=== PATIENT | female | born 1975 | race Caucasian/White ===

== ENCOUNTER 2016-10-31 13:01 | Emergency (ER) | payer OTHER ==
[~2016-10-31] VITALS: Ht 175.3 cm; Wt 63.5 kg
[2016-10-31] MEDS ORDERED: IV SET PRIMARY PUMP SET 1 EA INFUS.SET MC ONE (13:59)
[2016-10-31] MEDS ORDERED: IV NS 0.9% 1,000 ML ONE (13:59)
[2016-10-31] MEDS ORDERED: IV NS 0.9% 1,000 ML BAG IV ONE (14:00)
[2016-10-31] MEDS ORDERED: PANTOPRAZOLE 40 MG VIAL IV ONE (14:00)
[2016-10-31 14:01] LABS: BASOPHILS # (AUTO) 0.1 /CMM (0.0-0.2); BASOPHILS % (AUTO) 0.7 % (0.0-2.0); DIFF TOTAL % 100 %; HEMATOCRIT 33 % (33-45); HEMOGLOBIN 11.4 g/dL (11.5-14.8); LYMPHOCYTES # (AUTO) 0.3 /CMM (0.8-4.8); MEAN CORPUSCULAR HEMOGLOBIN 27 PG (26.0-33.0); MEAN CORPUSCULAR HGB CONC 34 g/dl (31.0-36.0); MEAN CORPUSCULAR VOLUME 78 fL (82-100); MONOCYTES # (AUTO) 0.5 /CMM (0.1-1.30); NEUTROPHILS # (AUTO) 14.7 /CMM (1.8-8.9); NEUTROPHILS % (AUTO) 94.3 % (43.0-81.0); PLATELET COUNT (AUTO) 190 /CMM (150-450); RED BLOOD CELL COUNT(AUTO) 4.23 MIL/uL (4.0-5.2); WHITE BLOOD COUNT (AUTO) 15.6 K/uL (4.3-11.0)
[2016-10-31 14:08] LABS: CALCIUM, SERUM 8.1 mg/dL (8.5-10.1); CREATININE 0.8 mg/dL (0.6-1.3); POTASSIUM 3.3 mmol/L (3.5-5.1)
[2016-10-31] MEDS ORDERED: PANTOPRAZOLE 40 MG VIAL ONE (14:10)
[2016-10-31 14:12] LABS: INR 1.1 (0.87-1.13); PROTHROMBIN TIME 11.6 SECS (9.5-12.7)
[2016-10-31 14:20] LABS: ALBUMIN 2.1 g/dL (3.4-5.0); BILIRUBIN,DIRECT 1.4 mg/dL (0.0-0.2); BILIRUBIN,TOTAL 1.9 mg/dL (0.2-1.0); INDIRECT BILIRUBIN 0.5 mg/dL (0.0-1.1); TOTAL PROTEIN, SERUM 6.2 g/dL (6.4-8.2)
[2016-10-31 14:48] LABS: LACTIC ACID 1.3 mmol/L (0.4-2.0)
[2016-10-31 15:26] LABS: ADD UA MICROSCOPIC NO; KETONES,URINE Negative (NEGATIVE); LEUKOCYTE ESTERASE ,URINE Negative (NEGATIVE); PH,URINE 6.5 (5.0-8.0)
[2016-10-31] MEDS ORDERED: POTASSIUM CHLORIDE 20 MEQ TAB.PRT.SR PO ONE ×2 (15:30→15:39)
[2016-10-31] MEDS ORDERED: IV LR 1000 ML 1,000 ML IV ONE (15:30)
[2016-10-31] MEDS ORDERED: IV LR 1000 ML 1,000 ML ONE (15:39)
[2016-10-31] MEDS ORDERED: SUCRALFATE 1 G/10 ML UDC ONE (16:18)
[2016-10-31] MEDS ORDERED: SUCRALFATE 1 G TABLET PO ONE (16:30)
[2016-10-31 16:32] VITALS: BP 118/65
[2016-10-31 17:40] LABS: BAND % (MANUAL) 24 % (0.0-5.0); LYMPHOCYTES % (MANUAL) 2 % (16-48)
[2016-11-03 02:13] LABS: HEPATITIS C VIRUS AB <0.1 s/co ratio (0.0-0.9)
== END 2016-10-31 16:35 | disposition home or self-care (01) ==
LOC: ER 13:07
DX: R19.7 Diarrhea, unspecified (principal); R74.0 Nonspecific elevation of levels of transaminase and lactic acid dehydrogenase [LDH]; E87.6 Hypokalemia
CPT/HCPCS: 71010; 76705; 80048; 80074; 80076; 81001; 83605; 83690; 85025; 85730; 87040; 96361; 96374; 99285; A4606; C9113; J7030; J7120; Z7610; 81000-TC

== ENCOUNTER 2016-11-03 08:41 | Inpatient (IN) | payer OTHER ==
[2016-11-03] VITALS (7 sets, daily range): BP systolic 98–230; BP diastolic 61–129
[~2016-11-03] VITALS: Ht 175.3 cm; Wt 68.0 kg
--- NOTE | 2016-11-03 08:50 | NUR ---
A/OX4, PT CAME TO ER W/ FAMILY MEMBER FOR FEVER, GENERALIZED BODY PAIN, COUGH AND COLD X 2 WKS. AFEBRILE AT THIS TIME. NAD RR EVEN AND UNLABORED, SKIN IS WARM AND NON DIAPHORETIC. SEEN AND EVALUATED BY ER
[2016-11-03] MEDS ORDERED: IV NS 0.9% 1,000 ML ONE (09:00)
[2016-11-03] MEDS ORDERED: IV SET PRIMARY PUMP SET 1 EA INFUS.SET MC ONE ×4 (09:00→21:06)
[2016-11-03] MEDS ORDERED: HYDROMORPHONE 1 MG/1 ML DISP.SYRIN ONE ×2 (09:00→10:25)
[2016-11-03] MEDS ORDERED: HYDROMORPHONE INJ 2 MG/ML DISP.SYRIN IV ONE (09:00)
[2016-11-03] MEDS ORDERED: ONDANSETRON HCL/PF 4 MG/2 ML VIAL ONE (09:00)
[2016-11-03] MEDS ORDERED: IV NS 0.9% 1,000 ML BAG IV ONE ×2 (09:00→10:30)
[2016-11-03] MEDS ORDERED: ONDANSETRON HCL/PF 4 MG/2 ML VIAL IVP ONE (09:00)
[2016-11-03 09:12] LABS: HEMATOCRIT 37 % (33-45); MEAN CORPUSCULAR HEMOGLOBIN 26 PG (26.0-33.0); MEAN CORPUSCULAR HGB CONC 33 g/dl (31.0-36.0); MEAN CORPUSCULAR VOLUME 78 fL (82-100); PLATELET COUNT (AUTO) 96 /CMM (150-450); WHITE BLOOD COUNT (AUTO) 9.1 K/uL (4.3-11.0)
[2016-11-03 09:19] LABS: CALCIUM, SERUM 8.1 mg/dL (8.5-10.1); CARBON DIOXIDE 22 mmol/L (21-32); CHLORIDE 102 mmol/L (98-107); GFR 61 mL/min (>60); GLUCOSE 93 mg/dL (74-106); POTASSIUM 3.5 mmol/L (3.5-5.1); SODIUM SERUM 136 mmol/L (136-145); UREA NITROGEN, BLOOD 13 mg/dL (7-18)
[2016-11-03 09:23] LABS: CREATINE KINASE, TOTAL 702 U/L (26-192)
[2016-11-03 09:24] LABS: ALANINE AMINOTRANSFERASE 56 U/L (12-78); ALBUMIN 1.7 g/dL (3.4-5.0); ALKALINE PHOSPHATASE 202 U/L (46-116); ASPARTATE AMINOTRANSFERASE 63 U/L (15-37); BILIRUBIN,DIRECT 3.2 mg/dL (0.0-0.2); C-REACTIVE PROTEIN < 0.6 mg/dL (0.0-0.9); TOTAL PROTEIN, SERUM 5.8 g/dL (6.4-8.2)
[2016-11-03 09:31] LABS: LACTIC ACID 3.9 mmol/L (0.4-2.0)
[2016-11-03 09:36] LABS: INR 1.28 (0.87-1.13); PROTHROMBIN TIME 13.9 SECS (9.5-12.7)
--- NOTE | 2016-11-03 09:54 | NUR ---
EPIC PAGED, DR BROWNING CERTIFIED NURSING ATTENDANT [phone]
--- NOTE | 2016-11-03 10:19 | NUR ---
REPORT GIVEN TO MELIZA MCGOVERN FOR CONT OF CARE
[2016-11-03] MEDS ORDERED: IV NS 0.9% 500 ML IV ONE ×2 (10:29→21:01)
[2016-11-03] MEDS ORDERED: IV SET PRIMARY 1 EA INFUS.SET MC ONE (10:29)
[2016-11-03] MEDS ORDERED: IV NS 0.9% 2,000 ML ONE (10:30)
[2016-11-03] MEDS ORDERED: MORPHINE SULFATE INJ 2 MG/ML DISP.SYRIN IV PRN (10:30)
[2016-11-03] MEDS ORDERED: SECONDARY IV SET 1 EA INFUS.SET MC ONE (10:30)
[2016-11-03] MEDS ORDERED: MAGNESIUM HYDROXIDE 30 ML UDC PO PRN (10:30)
[2016-11-03] MEDS ORDERED: Z GUARD REMEDY 2 OZ OINT TP PRN (10:30)
[2016-11-03] MEDS ORDERED: MAG HYDROX/AL HYDROX/SIMETH 30 ML UDC PO PRN (10:30)
[2016-11-03] MEDS ORDERED: ONDANSETRON HCL/PF 4 MG/2 ML VIAL IVP PRN (10:30)
[2016-11-03] MEDS ORDERED: HYDROMORPHONE 1 MG/1 ML DISP.SYRIN IV ONE (10:30)
[2016-11-03] MEDS ORDERED: IOHEXOL-300 100 ML VIAL IV ONE (10:50)
[2016-11-03 11:25] LABS: BAND % (MANUAL) 7 % (0.0-5.0); LYMPHOCYTES % (MANUAL) 10 % (16-48); MONOCYTES % (MANUAL) 3 % (0-11.0); NEUTROPHILS % (MANUAL) 80 (42-76)
[2016-11-03 11:28] LABS: ANISOCYTOSIS 1+; HYPOCHROMASIA 1+; PLATELET ESTIMATE DECREASED
[2016-11-03 11:29] LABS: OVALOCYTES 1+
--- NOTE | 2016-11-03 12:15 | NUR ---
M/S RN - ADMISSION RECEIVED REPORT FROM ED RN. PT BROUGHT TO FLOOR. NO S/S OF DISTRESS. AOX4. DENIES SOB. C/O PAIN 8/10 ACHING AT RIGHT AND LEFT LOWER EXTREMITIES. VITALS TAKEN. PT STATES, SHE CAME TO ER FOR 2 WEEKS OF GENERALIZED WEAKNESS AND FLU LIKE SYMPTOMS. ORDERS RECEIVED FROM DR. BROWNING. PT ORIENTED TO ROOM. SIDE RAILS UPX2, CALL LIGHT WITHIN REACH, BED LOCKED AND IN LOWEST POSITION
[2016-11-03] MEDS: IV NS 0.9% 1,000 ML IV PRN ×2 (13:00→20:18)
[2016-11-03] MEDS ORDERED: KETOROLAC TROMETHAMINE INJ 30 MG/ML VIAL IV ONE (13:39)
--- NOTE | 2016-11-03 14:00 | NUR ---
M/S RN - NOTE OBTAINS INFULENZA SPECIMEN
[2016-11-03 14:53] LABS: CREATINE KINASE MB 11.4 ng/mL (0-3.6)
--- NOTE | 2016-11-03 16:30 | NUR ---
M/S RN - TRANSFER TO ICU PT TRANSFERRED TO ICU VIA BED. REPORT GIVEN TO LAY MCGOVERN. Addendum: 11/03/16 at 1859 by MELIZA RIVERO RN TRANSFERRED AT 1830 NOT 1630
--- NOTE | 2016-11-03 17:00 | NUR ---
M/S RN - NOTE PT COLD, CLAMMY TO TOUCH. C/O OF FEELING HOT. AXILLARY TEMP 97.5. PT C/O OF FEELING LIKE SHE NEEDS TO PEE BUT CANNOT. DR. BROWNING NOTIFIED OF CHANGES, DR AT BEDSIDE. VERBAL ORDER TO INSERT ADAMS CATHETER AND TRANSFER TO TELE.
--- NOTE | 2016-11-03 17:10 | NUR ---
M/S RN - NOTE INSERTED ADAMS CATHETER 16 UKRA[place]. PT TOLERATED WELL. DARK YELLOW URINE DRAINING.
--- NOTE | 2016-11-03 17:30 | NUR ---
M/S RN - RAPID RESPONSE PT SWEATING, AOX4, PALE, EXTREMITIES COLD. RIGHT FINGERS CYANOTIC, UNABLE TO GET ACCURATE O2 SAT. PT RR 30, SAYING SHE FEELS SOB. PLACED ON 4L O2 VIA NC. CALLED RAPID RESPONSE. PT PLACED ON MONITOR, ST 133. RT, SLITTER OPERATOR, PRIMARY RN , AND NURSING PREVENTIVE MAINTENANCE COORDINATOR AT BEDSIDE. DR. BROWNING NOTIFIED.
[2016-11-03] MEDS ORDERED: DEXTROSE 50%-WATER 50 ML DISP.SYRIN ONE ×3 (17:35→20:52)
[2016-11-03] MEDS ORDERED: EPINEPHRINE (1:10,000) SYRINGE 1 MG/10 ML DISP.SYRIN IVP ONE ×2 (18:30→21:34)
--- NOTE | 2016-11-03 18:35 | NUR ---
ICU/RN - Transfer Received pt post Rapid Response from [facility]. Report received from FROILAN Cowart. Pt tachycardic 120's, placed on BiPAP, unable to obtain accurate O2 saturation. BP 158/72. All four extremities cool and clammy to touch.
--- NOTE | 2016-11-03 18:39 | NUR ---
ICU/RN - Notes Pt heart rate dropped, bradycardic, then unresponsive. Code blue initiated. Refer to Code Surinder Record.
--- NOTE | 2016-11-03 19:10 | NUR ---
ICU/RN - Notes Pt intubated and sedated, started on Diprivan gtt. AFib 130's. Pupils dilated 5mm. Blood sugar 64, D50 IVP given as ordered by ER MD. Dr Corley called and notified of code with new orders received. Report given to FROILAN Romero for continuity of care.
[2016-11-03] MEDS ORDERED: PROPOFOL 100 ML IV PRN (19:30)
[2016-11-03] MEDS ORDERED: Sodium Chloride 154 MEQ in IV 10% DEXTROSE 1,000 ML IV PRN ×6 (19:30)
[2016-11-03] MEDS ORDERED: IV 10% DEXTROSE 1,000 ML IV PRN (19:30)
[2016-11-03] MEDS ORDERED: VASOPRESSIN INJ 50 UNIT in IV D5W 497.5 ML IV PRN (21:00)
[2016-11-03] MEDS ORDERED: HEPARIN INFUSION/D5W 500 ML IV PRN (21:00)
[2016-11-03] MEDS ORDERED: HEPARIN SODIUM, PORCINE 5000 UNITS/1 ML VIAL ONE (21:12)
[2016-11-03] MEDS ORDERED: SODIUM BICARBONATE SYR 50 MEQ/50 ML DISP.SYRIN ONE (21:13)
[2016-11-03] MEDS ORDERED: EPINEPHRINE (1:1000) 2 MG in IV D5W 250 ML IV PRN (21:30)
[2016-11-03] MEDS ORDERED: DEXTROSE 50%-WATER 50 ML DISP.SYRIN IV ONE (21:34)
[2016-11-03] MEDS ORDERED: CALCIUM CHLORIDE 1,000 MG/10 ML DISP.SYRIN IV ONE (21:34)
[2016-11-03] MEDS ORDERED: NOREPINEPHRINE 4 MG/4 ML AMPUL IV ONE (21:34)
[2016-11-03] MEDS ORDERED: VASOPRESSIN INJ 20 UNIT/ML VIAL IV ONE (21:34)
[2016-11-03] MEDS ORDERED: SODIUM BICARBONATE SYR 50 MEQ/50 ML DISP.SYRIN IV ONE (21:34)
--- NOTE | 2016-11-03 22:29 | NUR ---
BI APPLICATION DEVELOPER - REC'D PT. INTUBATED: AC-18, TV-500, 100% AND PEEP OF 5. PT. IS SEDATED ON DIPRIVAN GTT. AT 30 MCG/KG/ MIN. HEART MONITOR SHOWS HR/AFIB/90'S & SBP'S AT 90'S-120'S. ADAMS CATH TO GRAVITY. PT'S MOTHER AT BS. AT APPROX. 20:21, PT'S HR STARTED TO DECLINE. PT. STEVENSON'D DOWN, PEA THEN ASYSTOLE WITHIN SECONDS. PT. ALREADY HAD A DUPLEX VENOUS DOPPLER STUDY DONE AT CHANGE OF SHIFT. THE MINK RANCHER INFORMED RN THAT PT. HAS A CLOT IN THE RT. SAPHRENOUS VEIN. MINK RANCHER WAS PERFORMING AN ECHO AT BEDSIDE WHEN PT. WENT STEVENSON. ANESTHESIOLOGIST ASSISTANT WAS ON TOP OF THE EVENT. IZABELLA VENCES NP HEADED CODE. PT'S & MOM WITNESSED THE EVENT. THE CODE WAS CALLED AT 2135 PM. COMMERCIAL DIVER & MYSELF EXPLAINED IN DEPTH RE: THE CODE SITUATION. CONDOLENCES & SYMPATHY GIVEN TO FAMILY. DR.SAM LYNCH PHONED & WAS GIVEN STATUS UPDATE. HE AGREED TO SIGN CERTIFICATE. HOUSE ZOLTAN REDMAN PHONED & ASKED IF RN SHOULD CALL CABLE SPLICER APPRENTICE. SHE STATED THAT IT WOULD BE A GOOD IDEA. CABLE SPLICER APPRENTICE CALLED & RN TALKED W/A PERSON NAMED LETICIA. I EXPLAINED IN DEPTH TO CABLE SPLICER APPRENTICE FROM ADMISSION TO PRESENT & CABLE SPLICER APPRENTICE AGREED TO SIGN OFF. PT. PLACED IN SHROUD & SECURITY HAS TAKEN BODY TO [place].
[2016-11-04] MEDS ORDERED: PANTOPRAZOLE 40 MG TABLET.DR PO SCH (07:30)
== END 2016-11-03 21:35 | disposition expired | DRG 723 ==
LOC: ER 08:43 → TELE2 10:43 → MEDSG2 13:55 → ICU 18:35
PROC: 0BH17EZ Insertion of Endotracheal Airway into Trachea, Via Natural or Artificial Opening (ICD-10-PCS; principal; 2016-11-03)
PROC: 5A12012 Performance of Cardiac Output, Single, Manual (ICD-10-PCS; principal; 2016-11-03)
PROC: 05H533Z Insertion of Infusion Device into Right Subclavian Vein, Percutaneous Approach (ICD-10-PCS; principal; 2016-11-03)
DX: B34.9 Viral infection, unspecified (principal); I26.99 Other pulmonary embolism without acute cor pulmonale; G61.0 Guillain-Barre syndrome; I82.411 Acute embolism and thrombosis of right femoral vein; R17 Unspecified jaundice; E87.2 Acidosis; E88.09 Other disorders of plasma-protein metabolism, not elsewhere classified; M60.9 Myositis, unspecified; B94.2 Sequelae of viral hepatitis; I82.491 Acute embolism and thrombosis of other specified deep vein of right lower extremity
CPT/HCPCS: 36415; 36569; 71010-TC; 74178; 80048-TC; 80076-TC; 82550-TC; 82553-TC; 82962-TC; 83605-TC; 83615-TC; 84484-TC; 84703-TC; 85025-TC; 85378-TC; 85730-TC; 86140-TC; 87040-TC; 87186-TC; 87400; 92611-TC; 92950-TC; 93307-TC; 93970-TC; A4606; J0171; J1170; J1644; J1885; J2270; J2405; J3490; J7030; J7040; J7060; Q9967; Z7610